=== PATIENT | male | born 2000 | race Caucasian/White ===

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

== ENCOUNTER 2021-09-13 13:17 | Emergency (ER) | payer OTHER ==
[~2021-09-13] VITALS: Ht 172.7 cm; Wt 90.9 kg
[~2021-09-13 13:17] MED LIST: TORADOL PO
[2021-09-13 13:24] VITALS: BP 128/87
[2021-09-13 13:31] VITALS: BP 129/90
[2021-09-13 13:46] VITALS: BP 129/85
[2021-09-13 14:01] VITALS: BP 131/80
[2021-09-13] MEDS ORDERED: NAPROXEN500 MG PO (14:07)
[2021-09-13 14:23] VITALS: BP 131/80
== END 2021-09-13 14:24 | disposition home or self-care (01) ==
LOC: ED 13:17
DX: J02.9 Acute pharyngitis, unspecified (principal); Z20.822 Contact with and (suspected) exposure to COVID-19
CPT/HCPCS: J0561